=== PATIENT | female | born 1980 | race Caucasian/White ===

== ENCOUNTER 2018-09-16 09:19 | Outpatient (CLI) | payer BC ==
--- NOTE | 2018-09-16 10:52 | ULT ---
ABDOMINAL AORTIC ULTRASOUND WITH DOPPLER COLOR FLOW AND SPECTRAL ANALYSIS: CLINICAL HISTORY: Ischemic heart disease, vascular disease, abdominal aortic aneurysm screening. FINDINGS: Sonographic evaluation reveals mild atherosclerosis. There is no aneurysmal dilatation of the aorta. The proximal aorta, mid abdominal aorta, and distal abdominal aorta measure less than [address] No significant abnormality of the partially imaged iliac vasculature, proximally. IMPRESSION: 1. No sonographic evidence of aortic aneurysm. 2. Mild atherosclerosis. POS: C
== END 2018-09-16 09:20 | disposition home or self-care (01) ==
LOC: SCSULT 09:19
PROVIDERS: ATTEND Family Medicine
DX: Z13.6 Encounter for screening for cardiovascular disorders (principal); I70.0 Atherosclerosis of aorta; Z82.49 Family history of ischemic heart disease and other diseases of the circulatory system
CPT/HCPCS: 76706

== ENCOUNTER 2022-12-21 13:32 | Outpatient (CLI) | payer BC | END 2022-12-21 13:33 | disposition home or self-care (01) | LOC: SCSMRI 13:32 | PROVIDERS: ATTEND Orthopaedic Surgery | DX: M24.9 Joint derangement, unspecified (principal) ==